=== PATIENT | male | born 1950 | race Caucasian/White ===

== ENCOUNTER 2023-07-26 09:41 | Day surgery (SDC) | payer MEDICARE ==
[~2023-07-26 09:41] MED LIST: Midazolam 1 MG/ML 2 ML SDV ONE; Propofol 200 MG/20 ML SDV ONE
[2023-07-26] MEDS ORDERED: Sodium Chloride 0.9% 10 ML Syringe FLUSH PRN (09:45)
[2023-07-26] MEDS: Lactated Ringers 1,000 ML IV SCH (10:01)
[2023-07-26 11:54] VITALS: BP 109/46; PULSE 57
== END 2023-07-26 12:15 | disposition home or self-care (01) ==
LOC: LL.SDS 09:41
PROVIDERS: ATTEND Surgery
DX: Z12.11 Encounter for screening for malignant neoplasm of colon (principal); D12.8 Benign neoplasm of rectum; K57.30 Diverticulosis of large intestine without perforation or abscess without bleeding; E78.2 Mixed hyperlipidemia; E66.01 Morbid (severe) obesity due to excess calories; Z68.41 Body mass index [BMI] 40.0-44.9, adult
CPT/HCPCS: 00811; 99100; J2250; J2704; J7120